=== PATIENT | female | born 1955 | race Caucasian/White ===

== ENCOUNTER → 2018-06-16 | Outpatient (CLI) | payer OTHER ==
[~2018-06-16] MED LIST: ATOR20TA65 PO; FENO145T37 PO; LISI-617 PO; METF-444 PO; METO100T14 PO; SENN-107 PO; SITA50TA PO; [UNRECOGNIZED DRUG - MIXTURE] PO
== END | disposition home or self-care (01) ==
LOC: RAH 14:49
PROVIDERS: ATTEND Internal Medicine
DX: Z12.31 Encounter for screening mammogram for malignant neoplasm of breast (principal)
CPT/HCPCS: 77067

== ENCOUNTER → 2018-07-08 | Outpatient (CLI) | payer OTHER | END | disposition home or self-care (01) | LOC: RAH 13:45 | PROVIDERS: ATTEND Internal Medicine | DX: N63.20 Unspecified lump in the left breast, unspecified quadrant (principal) | CPT/HCPCS: 76641; 77065 ==

== ENCOUNTER → 2019-06-16 | Outpatient (CLI) | payer OTHER | END | disposition home or self-care (01) | LOC: RAH 09:41 | PROVIDERS: ATTEND Internal Medicine | DX: N63.20 Unspecified lump in the left breast, unspecified quadrant (principal); N64.4 Mastodynia; Z88.0 Allergy status to penicillin; Z80.9 Family history of malignant neoplasm, unspecified | CPT/HCPCS: 76641; 77066 ==

== ENCOUNTER → 2021-02-28 | Outpatient (CLI) | payer OTHER ==
[~2021-02-28] MED LIST changes: +FENO145T26 PO; -FENO145T37 PO; -LISI-617 PO; +LISI-809 PO
== END | disposition home or self-care (01) ==
LOC: RAH 10:44
PROVIDERS: ATTEND Internal Medicine
DX: Z01.811 Encounter for preprocedural respiratory examination (principal)
CPT/HCPCS: 71046

== ENCOUNTER → 2025-04-11 | Outpatient (CLI) | payer MEDICARE ==
[~2025-04-11] MED LIST changes: -LISI-809 PO; +LISI5TAB21 PO
--- NOTE | 2025-04-12 03:45 | HMCIMG ---
EXAM: CR Bilateral Knees, 4 views. CLINICAL HISTORY: Pain. COMPARISON: None provided. FINDINGS: No acute fracture or aggressive appearing osseous lesion. Mild osteopenia. Mild to moderate tricompartmental knee joint osteoarthritis bilaterally. Small suprapatellar effusions bilaterally. Scattered atherosclerotic vascular calcifications around the bilateral knee. IMPRESSION: No acute bony abnormality is evident. Mild osteopenia. Mild to moderate tricompartmental knee joint osteoarthritis bilaterally. /Pride
== END | disposition home or self-care (01) ==
LOC: RAH 09:01
DX: M17.0 Bilateral primary osteoarthritis of knee (principal); M25.561 Pain in right knee; M25.562 Pain in left knee; M85.862 Other specified disorders of bone density and structure, left lower leg; M85.861 Other specified disorders of bone density and structure, right lower leg; I70.8 Atherosclerosis of other arteries; M25.462 Effusion, left knee; M25.461 Effusion, right knee
CPT/HCPCS: 73565; 73560